=== PATIENT | female | born 1955 | race Caucasian/White ===

== ENCOUNTER 2018-02-14 14:32 | Inpatient (IN) | payer MEDICARE ==
[~2018-02-14] VITALS: Ht 167.6 cm; Wt 90.3 kg
[2018-02-14] MEDS ORDERED: SODIUM CHLORIDE 0.9% 1000ML 1,000 ML IV STA (15:07)
[2018-02-14 15:13] LABS: BASOPHILS # (AUTO) 0.1 (0.0-0.1); BASOPHILS % 0.8 % (0.0-1.0); EOSINOPHILS # (AUTO) 0.1 (0.0-0.4); EOSINOPHILS % 0.6 % (0.0-6.0); HEMATOCRIT 40.9 % (34.2-44.1); HEMOGLOBIN 13.8 g/dL (12.0-16.0); LYMPHOCYTES # (AUTO) 1.9 (1.0-3.2); LYMPHOCYTES % 14.3 % (18.0-39.1); MEAN CORPUSCULAR HEMOGLOBIN 31.3 pg (28-32); MEAN CORPUSCULAR HGB CONC 33.7 g/dL (31-35); MEAN CORPUSCULAR VOLUME 92.7 fL (81-99); MONOCYTES # (AUTO) 0.8 (0.2-0.8); MONOCYTES % 6.3 % (4.4-11.3); NEUTROPHILS # (AUTO) 10.3 (2.1-6.9); NEUTROPHILS % 77.5 % (38.7-80.0); PLATELET COUNT 333 x10e3/uL (140-360); RED BLOOD COUNT 4.41 x10e6/uL (3.6-5.1); RED CELL DISTRIBUTION WIDTH 16.9 % (11.7-14.4)
[2018-02-14 15:21] LABS: INR 1.04; PROTHROMBIN TIME 12.8 seconds (11.9-14.5)
[2018-02-14 15:22] LABS: PARTIAL THROMBOPLASTIN TIME 27.9 seconds (23.8-35.5)
[2018-02-14 15:30] LABS: ALANINE AMINOTRANSFERASE 10 IU/L (0-55); ALBUMIN 4.2 g/dL (3.5-5.0); ALBUMIN/GLOBULIN RATIO 1.3 (0.8-2.0); ALKALINE PHOSPHATASE 59 IU/L (40-150); ANION GAP 13.9 mmol/L (8-16); BLOOD UREA NITROGEN 53 mg/dL (7-26); BUN/CREATININE RATIO 16 (6-25); CALCIUM 9.9 mg/dL (8.4-10.2); CARBON DIOXIDE 10 mmol/L (22-29); CHLORIDE 110 mmol/L (98-107); CREATINE KINASE 18 IU/L (29-168); CREATININE, SERUM 3.36 mg/dL (0.57-1.11); EST GLOMERULAR FILTRATION RATE 14 ML/MIN (60-); GLUCOSE 126 mg/dL (74-118); POTASSIUM 4.9 mmol/L (3.5-5.1); SODIUM 129 mmol/L (136-145)
[2018-02-14 15:36] LABS: CLARITY,URINE SL CLOUDY (CLEAR); COLOR,URINE YELLOW (YELLOW); KETONES,URINE NEGATIVE (NEGATIVE); LEUKOCYTE ESTERASE ,URINE NEGATIVE (NEGATIVE); NITRITE,URINE NEGATIVE (NEGATIVE); PROTEIN,URINE DIPSTICK 1+ (NEGATIVE)
[2018-02-14 15:37] LABS: BILIRUBIN,URINE NEGATIVE (NEGATIVE); URINE UROBILINOGEN 0.2 mg/dL (0.2 - 1)
[2018-02-14 15:47] LABS: BACTERIA,URINE FEW /HPF; EPITHELIAL CELLS,URINE FEW /LPF; RBC,URINE 0-5 /HPF (0-5); WBC,URINE (MAN) 0-5 /HPF (0-5)
[2018-02-14 15:48] LABS: AMORPHOUS SEDIMENT,URINE MODERATE (FEW); MUCUS,URINE FEW (RARE)
[2018-02-14] MEDS ORDERED: SODIUM BICARBONATE 8.4% 150 ML in DEXTROSE 5% 1,000 ML IV ONE (17:00)
[2018-02-14] MEDS ORDERED: ONDANSETRON HCL INJ 2 MG/ML VIAL IV PRN (18:45)
[2018-02-14] MEDS ORDERED: SODIUM BICARBONATE 8.4% IV ONE (18:45)
[2018-02-14] MEDS ORDERED: DEXTROSE 5% IV ONE (18:45)
--- NOTE | 2018-02-14 18:47 | Diagnostic Imaging Report ---
PROCEDURE: Frontal and lateral views of the chest. COMPARISON: None. INDICATIONS: SHORTNESS OF BREATH, WEAKNESS FINDINGS: Lines/tubes: None. Lungs: The lungs are well inflated and clear. There is no evidence of pneumonia or pulmonary edema. Pleura: There is no pleural effusion or pneumothorax. Heart and mediastinum: The heart and the mediastinum are normal. Bones: No acute bony abnormality. IMPRESSION: 1. No acute cardiopulmonary disease. Carlos Hanna M.D. Dictated by: Carlos Hanna M.D. on 02/14/2018 at 18:51 Electronically approved by: Carlos Hanna M.D. on 02/14/2018 at 18:51
[2018-02-14] MEDS ORDERED: METHADONE HCL5 MG PO (19:13)
[2018-02-14] MEDS ORDERED: BACLOFEN10 MG PO (19:13)
[2018-02-14] MEDS ORDERED: GABAPENTIN600 MG PO (19:13)
[2018-02-14] MEDS ORDERED: LEVOTHYROXINE100 MCG PO (19:13)
[2018-02-14] MEDS ORDERED: LISINOPRIL20 MG PO (19:13)
[2018-02-14] MEDS ORDERED: MELOXICAM7.5 MG PO (19:13)
[2018-02-14] MEDS ORDERED: HYDROCODON-ACE1 EAC9 PO (19:13)
[2018-02-14 20:25] VITALS: BP 99/53
[2018-02-14 20:30] VITALS: BP 99/53
[2018-02-14] MEDS ORDERED: HYDROCODONE/APAP 5MG-325MG TAB PO PRN (21:00)
[2018-02-14 22:41] LABS: CREATININE,URINE RANDOM 106.22 mg/dL (47-110)
[2018-02-15 02:15] LABS: CREATINE KINASE 21 IU/L (29-168)
[2018-02-15 05:03] VITALS: BP 87/50
[2018-02-15 06:02] LABS: BASOPHILS # (AUTO) 0.1 (0.0-0.1); BASOPHILS % 1.1 % (0.0-1.0); EOSINOPHILS # (AUTO) 0.2 (0.0-0.4); EOSINOPHILS % 1.9 % (0.0-6.0); HEMATOCRIT 32.5 % (34.2-44.1); LYMPHOCYTES # (AUTO) 2.2 (1.0-3.2); LYMPHOCYTES % 24.6 % (18.0-39.1); MEAN CORPUSCULAR HGB CONC 33.8 g/dL (31-35); MEAN CORPUSCULAR VOLUME 91.5 fL (81-99); MONOCYTES # (AUTO) 0.7 (0.2-0.8); MONOCYTES % 7.8 % (4.4-11.3); NEUTROPHILS # (AUTO) 5.8 (2.1-6.9); NEUTROPHILS % 63.9 % (38.7-80.0); PLATELET COUNT 273 x10e3/uL (140-360); RED BLOOD COUNT 3.55 x10e6/uL (3.6-5.1); RED CELL DISTRIBUTION WIDTH 16.4 % (11.7-14.4)
[2018-02-15 06:24] LABS: ANION GAP 10.6 mmol/L (8-16); CHOL/HDL RATIO 3.3 (3.0-3.6); CREATININE, SERUM 2.3 mg/dL (0.57-1.11); POTASSIUM 4.6 mmol/L (3.5-5.1)
[2018-02-15 07:06] LABS: CREATINE KINASE 16 IU/L (29-168)
[2018-02-15] MEDS ORDERED: DEXTROSE 5%/0.9% SOD CHL 1,000 ML IV ONE (08:00)
[2018-02-15 08:06] VITALS: BP 104/59
[2018-02-15] MEDS: HYDROMORPHONE 1MG/1ML INJ IV PRN ×2 (09:18→15:11)
[2018-02-15 09:20] VITALS: BP 115/57
[2018-02-15] MEDS ORDERED: MELOXICAM 7.5 MG TAB PO PRN (09:45)
[2018-02-15] MEDS: GABAPENTIN 400 MG CAP PO SCH ×3 (10:03→22:15)
[2018-02-15] MEDS: LEVOTHYROXINE SODIUM 100 MCG TAB PO SCH (10:04)
--- NOTE | 2018-02-15 10:26 | Diagnostic Imaging Report ---
PROCEDURE:US RETROPERITONEAL ( KIDNEY ). COMPARISON:None. INDICATIONS:Acute Kidney Injury TECHNIQUE: Velasquez-scale and color sonographic images of the bilateral kidneys and bladder where obtained in transverse and longitudinal planes. FINDINGS: RIGHT KIDNEY: 10.7 cm in length, cortical thickness 1.2 cm. Cysts: None Solid masses: None Stones: None Hydronephrosis: None Echogenicity: Increased renal cortical echogenicity LEFT KIDNEY: Not visualized Bladder: Unremarkable. Right ureteral jet is identified. Incidental note of a 6 x 6.6 x 8.2 cm anechoic structure in the right adnexal region with echogenic internal septation. Incidental note of a 1.4 cm anechoic cyst in the inferior pole of the spleen. CONCLUSION: Echogenic right kidney in keeping with medical renal disease. No hydronephrosis. Nonvisualization of the left kidney which may relate to atrophy or ectopic position. No prior cross-sectional imaging is available for comparison. Complex right adnexal cystic lesion as described above. In a patient of this age, gynecologic consultation is suggested. Dictated by: Ross Damon M.D. on 02/15/2018 at 10:29 Electronically approved by: Ross Damon M.D. on 02/15/2018 at 10:29
[2018-02-15 12:00] VITALS: BP 120/58
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
[2018-02-15] MEDS ORDERED: GABAPENTIN 300 MG CAP PO SCH (15:00)
[2018-02-15] MEDS: METHADONE HCL 5 MG TAB PO SCH ×2 (15:10→22:15)
[2018-02-15 15:14] LABS: CREATINE KINASE 22 IU/L (29-168)
[2018-02-15 15:53] VITALS: BP 142/64
--- NOTE | 2018-02-15 19:24 | Consultation ---
DATE OF CONSULTATION: February 15, 2018 RENAL CONSULTATION ADMITTING PHYSICIAN: Ross Steen MD REASON FOR CONSULTATION: Acute kidney injury and acidosis. HISTORY OF PRESENT ILLNESS: This 62-year-old female with history of chronic back pain and hypertension presented to [facility] for severe pain and weakness. The patient was using wmda-jvt-aelkqgy NSAID, approximately 6 tabs every 4 hours for approximately 2 weeks. The patient states it was an off-brand generic and was definitely not Tylenol. The patient had some loose stools. No nausea. No vomiting. Did have some reflux and eventually presented to the emergency room. The patient was found to have acute kidney injury and acidosis. She was started on a bicarbonate drip and admitted, and nephrology consultation was called. REVIEW OF SYSTEMS: As above. No swelling. No shortness of breath. No nausea. No vomiting. Some diarrhea. All other systems negative. PAST MEDICAL HISTORY 1. Chronic back and neck pain. 2. GERD. 3. Hypothyroidism. 4. Hypertension. PAST SURGICAL HISTORY 1. Hysterectomy. 2. Hand surgery. 3. Cholecystectomy. 4. Two C-sections. SOCIAL HISTORY: Positive tobacco. No alcohol. No IV drugs. FAMILY HISTORY: No family history of kidney disease other than a sister with nephrolithiasis. ALLERGIES: NO KNOWN DRUG ALLERGIES. CURRENT MEDICATIONS: See list. PHYSICAL EXAMINATION VITALS: Blood pressure 142/64, pulse 77, respiratory rate 17, temperature 97.8. GENERAL: No apparent distress. HEENT: Oropharynx is clear. No scleral icterus. No periorbital edema. NECK: Supple. No elevation in jugular venous pressure. No lymphadenopathy. CHEST: Clear to auscultation anteriorly bilaterally. CARDIOVASCULAR: Regular rhythm. No murmurs, rubs, or gallops. ABDOMEN: Soft. Positive bowel sounds. No tenderness. No rebound. EXTREMITIES: No edema. No clubbing. No cyanosis. SKIN: Warm. LABS: Sodium 130, potassium 4.6, chloride 109, CO2 15, BUN 54, creatinine 2.3. Hemoglobin 11.0, white count 9.1, platelets 273. Urine sodium 31, urine protein 32, urine creatinine 106, 2-5 hyaline casts, 1+ protein. IMAGING: Chest x-ray: Clear. Renal ultrasound showed increased renal cortical echogenicity. Right kidney 10.7 cm. Left kidney not visualized. Incidental note of a 6 x 6.6 x 8.2 anechoic structure in the right adnexal region consistent with complex right adnexal cystic lesion as described above. ASSESSMENT AND PLAN 1. Acute kidney injury, suspect secondary to volume depletion and acute tubular necrosis. Suspect she also has some underlying chronic kidney disease. Continue with IV fluids. Need to avoid all NSAIDs as well as MCCLAIN-2 inhibitors such as Mobic. I have discussed this with the patient, and she understands. 2. Hyponatremia. Will place the patient on fluid restriction. Continue with isotonic fluids. 3. Metabolic acidosis secondary to above. Will put on sodium bicarbonate tablets. 4. Hypertension. Blood pressure acceptable. May consider DAVID inhibitor at discharge. 5. Adnexal mass. Needs gynecological evaluation as an outpatient. Discussed with the patient, and she understood. HARINDER WELLER MD Job#: [id number]
[2018-02-15 20:00] VITALS: BP 107/54
[2018-02-15] MEDS: SODIUM BICARBONATE 650 MG TAB PO SCH (22:15)
[2018-02-15] MEDS: HYDROCODONE/APAP 10MG-325MG TAB PO PRN (22:15)
[2018-02-15] MEDS: HEPARIN SOD (PORCINE) 5,000 UNIT/ML VIAL SC SCH (22:17)
[2018-02-16] VITALS (7 sets, daily range): BP systolic 96–121; BP diastolic 53–76
[2018-02-16] MEDS: LEVOTHYROXINE SODIUM 100 MCG TAB PO SCH (06:40)
[2018-02-16 06:42] LABS: BASOPHILS # (AUTO) 0.1 (0.0-0.1); BASOPHILS % 1.2 % (0.0-1.0); EOSINOPHILS # (AUTO) 0.2 (0.0-0.4); EOSINOPHILS % 1.9 % (0.0-6.0); HEMATOCRIT 34.1 % (34.2-44.1); HEMOGLOBIN 11.6 g/dL (12.0-16.0); LYMPHOCYTES # (AUTO) 2.7 (1.0-3.2); LYMPHOCYTES % 33.1 % (18.0-39.1); MEAN CORPUSCULAR HEMOGLOBIN 31.4 pg (28-32); MEAN CORPUSCULAR VOLUME 92.4 fL (81-99); MONOCYTES # (AUTO) 0.7 (0.2-0.8); MONOCYTES % 7.9 % (4.4-11.3); NEUTROPHILS # (AUTO) 4.6 (2.1-6.9); NEUTROPHILS % 55.7 % (38.7-80.0); PLATELET COUNT 339 x10e3/uL (140-360); RED BLOOD COUNT 3.69 x10e6/uL (3.6-5.1); RED CELL DISTRIBUTION WIDTH 16.5 % (11.7-14.4)
[2018-02-16 07:19] LABS: ALBUMIN 3.5 g/dL (3.5-5.0); ALBUMIN/GLOBULIN RATIO 1.3 (0.8-2.0); ANION GAP 11.1 mmol/L (8-16); CALCIUM 9.3 mg/dL (8.4-10.2); CREATININE, SERUM 1.46 mg/dL (0.57-1.11); POTASSIUM 5.1 mmol/L (3.5-5.1)
[2018-02-16] MEDS: HEPARIN SOD (PORCINE) 5,000 UNIT/ML VIAL SC SCH ×2 (08:01→21:03)
[2018-02-16] MEDS: METHADONE HCL 5 MG TAB PO SCH ×3 (08:01→21:03)
[2018-02-16] MEDS: SODIUM BICARBONATE 650 MG TAB PO SCH ×2 (08:01→17:07)
[2018-02-16] MEDS: GABAPENTIN 400 MG CAP PO SCH ×3 (08:01→21:03)
[2018-02-16] MEDS: HYDROCODONE/APAP 10MG-325MG TAB PO PRN ×2 (12:45→17:08)
[2018-02-16] MEDS ORDERED: SODIUM CHLORIDE 0.9% 1000ML 1,000 ML ONE (14:20)
[2018-02-16] MEDS: SODIUM CHLORIDE 0.9% 1000ML 1,000 ML IV SCH (14:40)
[2018-02-16] MEDS ORDERED: FAMOTIDINE 20 MG TAB PO ONE (17:30)
[2018-02-17] VITALS: BP 98/50
[2018-02-17] MEDS: SODIUM CHLORIDE 0.9% 1000ML 1,000 ML IV SCH (03:57)
[2018-02-17 04:00] VITALS: BP 123/58
[2018-02-17] MEDS: LEVOTHYROXINE SODIUM 100 MCG TAB PO SCH (05:09)
[2018-02-17] MEDS: HYDROCODONE/APAP 10MG-325MG TAB PO PRN (05:09)
[2018-02-17 06:42] LABS: BASOPHILS # (AUTO) 0.1 (0.0-0.1); BASOPHILS % 1.1 % (0.0-1.0); EOSINOPHILS # (AUTO) 0.1 (0.0-0.4); EOSINOPHILS % 1.6 % (0.0-6.0); HEMATOCRIT 30.6 % (34.2-44.1); HEMOGLOBIN 10.4 g/dL (12.0-16.0); LYMPHOCYTES # (AUTO) 1.5 (1.0-3.2); LYMPHOCYTES % 24.8 % (18.0-39.1); MEAN CORPUSCULAR HEMOGLOBIN 31.6 pg (28-32); MONOCYTES # (AUTO) 0.5 (0.2-0.8); NEUTROPHILS # (AUTO) 3.9 (2.1-6.9); PLATELET COUNT 319 x10e3/uL (140-360); RED BLOOD COUNT 3.29 x10e6/uL (3.6-5.1); RED CELL DISTRIBUTION WIDTH 16.4 % (11.7-14.4)
[2018-02-17 06:49] LABS: ANION GAP 7.8 mmol/L (8-16); CALCIUM 8.9 mg/dL (8.4-10.2); CREATININE, SERUM 1.05 mg/dL (0.57-1.11); POTASSIUM 4.8 mmol/L (3.5-5.1)
[2018-02-17] MEDS ORDERED: FAMOTIDINE 20 MG TAB PO SCH (07:30)
[2018-02-17 08:01] VITALS: BP 125/61
[2018-02-17] MEDS: SODIUM BICARBONATE 650 MG TAB PO SCH (08:43)
[2018-02-17] MEDS: METHADONE HCL 5 MG TAB PO SCH (08:43)
[2018-02-17] MEDS: HEPARIN SOD (PORCINE) 5,000 UNIT/ML VIAL SC SCH (08:43)
[2018-02-17] MEDS: GABAPENTIN 400 MG CAP PO SCH (08:43)
[2018-02-17 11:01] VITALS: BP 125/61
[2018-02-17] MEDS ORDERED: NORCO 10-325 T1 EACH PO (11:03)
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
--- NOTE | 2018-04-04 21:56 | Discharge Summary ---
FINAL DIAGNOSES 1. Acute kidney injury, likely due to NSAIDs use. 2. Chronic back pain. 3. Metabolic acidosis secondary to renal failure. 4. Smoker for 40 years. ADMISSION HISTORY AND HOSPITALIZATION: Ms. Bello is a 62-year-old female who presented with generalized body pain, found to be in renal failure. The patient has been using NSAIDs. Dr. Flynn was consulted and he evaluated the patient from nephrology standpoint. IV hydration was started. The patient improved. Metabolic acidosis resolved. Dr. Garfield Muro was consulted for pain management. The patient improved. Nephrology cleared the patient. The patient was discharged home to follow up with her primary care physician. DISCHARGE MEDICATIONS: Reviewed. EMMANUEL FRYE MD Job#: [id number] GH
== END 2018-02-17 11:50 | disposition home or self-care (01) | DRG 683 ==
LOC: ER 14:32 → ERHOLD 18:44 → MED/SURG 19:57
PROVIDERS: ADMIT Internal Medicine Pulmonary Disease; ATTEND Internal Medicine Pulmonary Disease
DX: N17.0 Acute kidney failure with tubular necrosis (principal); E87.2 Acidosis; E87.1 Hypo-osmolality and hyponatremia; M54.5 Low back pain; G89.29 Other chronic pain; K21.9 Gastro-esophageal reflux disease without esophagitis; E03.9 Hypothyroidism, unspecified; N85.9 Noninflammatory disorder of uterus, unspecified; N14.0 Analgesic nephropathy; I12.9 Hypertensive chronic kidney disease with stage 1 through stage 4 chronic kidney disease, or unspecified chronic kidney disease; N18.9 Chronic kidney disease, unspecified
CPT/HCPCS: 36415; 71046; 76770; 80048; 80053; 80061; 81001; 82550; 82553; 82570; 83605; 84156; 84300; 84484; 85025; 85610; 85730; 93005; 93306; 99284; J1170; J1644; J7030; J7042; J7070